=== PATIENT | female | born 2000 | race Two or more races ===

== ENCOUNTER 2023-09-04 09:38 | Emergency (ER) | payer MEDICAID, OTHER ==
[~2023-09-04] VITALS: Ht 162.6 cm; Wt 70.0 kg
[2023-09-04 10:03] VITALS: TEMP 98.3
[2023-09-04 10:07] VITALS: BP 121/78; PULSE 87; RESP 16; O2SAT 95
[2023-09-04] MEDS ORDERED: IBUP-1455 PO (11:48)
== END 2023-09-04 12:00 | disposition home or self-care (01) ==
LOC: ER 09:38
DX: S97.82XA Crushing injury of left foot, initial encounter (principal); W20.8XXA Other cause of strike by thrown, projected or falling object, initial encounter; Y93.89 Activity, other specified; Y92.89 Other specified places as the place of occurrence of the external cause; Y99.8 Other external cause status
CPT/HCPCS: 73630